=== PATIENT | male | born 1955 | race Caucasian/White ===

== ENCOUNTER 2018-02-12 07:34 | Inpatient (IN) | payer MEDICARE, OTHER ==
[~2018-02-12 07:34] MED LIST: ROCURONIUM 50 MG INJ
[2018-02-12 08:38] LABS: ADD MAN DIFF? NO
[2018-02-12] MEDS ORDERED: HEPARIN 1000 UNITS/ML 10 ML INJ (08:42)
[2018-02-12 08:44] LABS: BASOPHILS % 0.6 % (0.0-2.0); EOSINOPHILS # 0.3 10^3/ul (0.0-0.5); EOSINOPHILS % 4.2 % (0.0-7.0); HEMATOCRIT 36.9 % (42.0-52.0); HEMOGLOBIN 13.1 g/dl (14.0-18.0); LYMPHOCYTES # 2.8 10^3/ul (0.8-2.9); MEAN CORPUSCULAR HEMOGLOBIN 30.6 pg (29.0-33.0); MEAN CORPUSCULAR HGB CONC 35.5 g/dl (32.0-37.0); MEAN CORPUSCULAR VOLUME 86.2 fl (82.0-101.0); MEAN PLATELET VOLUME 9.1 fl (7.4-10.4); MONOCYTE # 0.6 10^3/ul (0.3-0.9); MONOCYTES % 8.9 % (0.0-11.0); NEUTROPHILS % 45.2 % (39.0-77.0); PLATELET COUNT 254 10^3/UL (140-415); RED BLOOD COUNT 4.28 10^6/ul (4.70-6.10); RED CELL DISTRIBUTION WIDTH 11.6 % (11.5-14.5)
[2018-02-12 08:44] LABS: WHITE BLOOD COUNT 6.7 10^3/ul (4.8-10.8)
[2018-02-12] MEDS ORDERED: FENTAnyl 50 MCG/ML VIAL (09:38)
[2018-02-12] MEDS: THROMBIN 5000 UNIT VIAL (10:24)
[2018-02-12] MEDS: GELATIN SIZE 100 SPONGE (10:24)
[2018-02-12] MEDS: CEFAZOLIN 1 GM INJ (10:24)
[2018-02-12] MEDS ORDERED: PHENYLephrine (100 MCG/ML) 5ML SYG (10:41)
[2018-02-12] MEDS ORDERED: HYDROmorphONE (0.2 MG/ML) 10ML SYG IV ×2 (13:30)
[2018-02-12] MEDS ORDERED: FENTAnyl 50 MCG/ML VIAL IV (13:30)
[2018-02-12] MEDS ORDERED: MEPERIDINE 25 MG INJ IV (13:30)
[2018-02-12] MEDS ORDERED: METOCLOPRAMIDE 10 MG INJ IV (13:30)
[2018-02-12] MEDS ORDERED: POLYMYXIN/BACITRACIN 1L IRRIG (14:36)
[2018-02-12] MEDS ORDERED: LIDOCAINE 100 MG SYRINGE (16:16)
[2018-02-12] MEDS ORDERED: ROCURONIUM 50 MG INJ (16:16)
[2018-02-12] MEDS ORDERED: SUGAMMADEX SODIUM 200 MG/2 ML VIAL IV (16:16)
[2018-02-12] MEDS ORDERED: SUCCINYLCHOLINE CHLORIDE 100 MG/5 ML SYG IV (16:16)
[2018-02-12] MEDS ORDERED: PROPOFOL 20 ML (16:16)
[2018-02-12] MEDS ORDERED: CEFAZOLIN 1 GM INJ (16:16)
[2018-02-12] MEDS ORDERED: PROCHLORPERAZINE 10 MG TAB PO (17:00)
[2018-02-12] MEDS ORDERED: ONDANSETRON 4 MG INJ IV (17:00)
[2018-02-12] MEDS ORDERED: NALOXONE (0.4 MG/ML) INJ IV (17:00)
[2018-02-12] MEDS ORDERED: NACL 0.9% 3 ML SYG IV (17:00)
[2018-02-12] MEDS ORDERED: ACETAMINOPHEN 325 MG TAB PO (17:00)
[2018-02-12] MEDS: HYDROmorphONE (0.2 MG/ML) 10ML SYG IV (17:24)
[2018-02-12] MEDS: ONDANSETRON 4 MG INJ IV (17:26)
[2018-02-12] MEDS: FENTAnyl 50 MCG/ML VIAL IV (17:28)
[2018-02-12] MEDS ORDERED: HYDROmorphONE 0.5 MG/0.5 ML SYG IV (17:30)
[2018-02-12] MEDS: HYDROmorphONE 0.2 MG/ML PCA IV (17:32)
[2018-02-12] MEDS: DIPHENHYDRAMINE 50 MG INJ IV (17:55)
[2018-02-12] MEDS: CEFAZOLIN 1 GM/50 ML (PMX) 50 ML IVPB ×2 (18:29→23:50)
[2018-02-12 19:11] LABS: HEMATOCRIT 32.4 % (42.0-52.0); HEMOGLOBIN 11.5 g/dl (14.0-18.0); MEAN CORPUSCULAR HEMOGLOBIN 30.8 pg (29.0-33.0); MEAN CORPUSCULAR HGB CONC 35.5 g/dl (32.0-37.0); MEAN CORPUSCULAR VOLUME 86.9 fl (82.0-101.0); MEAN PLATELET VOLUME 8.6 fl (7.4-10.4); PLATELET COUNT 182 10^3/UL (140-415); RED BLOOD COUNT 3.73 10^6/ul (4.70-6.10); RED CELL DISTRIBUTION WIDTH 11.6 % (11.5-14.5)
[2018-02-12 19:11] LABS: WHITE BLOOD COUNT 10.8 10^3/ul (4.8-10.8)
[2018-02-12 19:14] LABS: ADD MAN DIFF? YES
[2018-02-12 19:41] LABS: BAND NEUTROPHILS #M 0.4 10^3/ul (0.0-0.6); BAND NEUTROPHILS % (M) 4 % (0-4); LYMPHOCYTES #M 1.9 10^3/ul (0.8-2.9); LYMPHOCYTES % (M) 18 % (15-51); MONOCYTE #M 0.3 10^3/ul (0.3-0.9); MONOCYTES % (M) 3 % (0-11); PLATELET ESTIMATE NORMAL; SEG NEUT #M 8.1 10^3/ul (1.6-7.5); SEGMENTED NEUTROPHILS (M) % 75 % (39-77); SMUDGE%M 15 % (0-0)
[2018-02-12] MEDS: DEXTROSE 5%-0.45% NACL 1,000 ML IV (19:43)
[2018-02-13] MEDS: HYDROmorphONE 0.2 MG/ML PCA IV ×3 (00:10→21:02)
[2018-02-13] MEDS: DEXTROSE 5%-0.45% NACL 1,000 ML IV ×4 (02:57→22:57)
[2018-02-13] MEDS: CEFAZOLIN 1 GM/50 ML (PMX) 50 ML IVPB ×2 (06:32→11:47)
[2018-02-13 12:07] LABS: ANION GAP 14 (8-16); BLOOD UREA NITROGEN 9 mg/dl (7-20); CARBON DIOXIDE 24 mmol/L (21-31); CHLORIDE 100 mmol/L (97-110); CREATININE 0.61 mg/dl (0.61-1.24); GLUCOSE 172 mg/dl (70-220); POTASSIUM 3.9 mmol/L (3.5-5.1); SODIUM 134 mmol/L (135-144)
[2018-02-13] MEDS: DOCUSATE SODIUM 100 MG CAP PO (21:02)
[2018-02-14 04:57] LABS: ADD MAN DIFF? NO
[2018-02-14 05:03] LABS: BASOPHILS % 0.2 % (0.0-2.0); EOSINOPHILS % 0.2 % (0.0-7.0); HEMATOCRIT 31.3 % (42.0-52.0); HEMOGLOBIN 11.2 g/dl (14.0-18.0); LYMPHOCYTES # 1.4 10^3/ul (0.8-2.9); LYMPHOCYTES % 12.1 % (15.0-51.0); MEAN CORPUSCULAR HEMOGLOBIN 31.1 pg (29.0-33.0); MEAN CORPUSCULAR HGB CONC 35.8 g/dl (32.0-37.0); MEAN CORPUSCULAR VOLUME 86.9 fl (82.0-101.0); MEAN PLATELET VOLUME 9.2 fl (7.4-10.4); MONOCYTES % 9.2 % (0.0-11.0); NEUTROPHIL # 8.8 10^3/ul (1.6-7.5); NEUTROPHILS % 77.9 % (39.0-77.0); PLATELET COUNT 197 10^3/UL (140-415); RED CELL DISTRIBUTION WIDTH 11.3 % (11.5-14.5)
[2018-02-14 05:03] LABS: WHITE BLOOD COUNT 11.3 10^3/ul (4.8-10.8)
[2018-02-14 05:38] LABS: ALANINE AMINOTRANSFERASE 36 IU/L (13-69); ALBUMIN 3.2 g/dl (3.3-4.9); ALBUMIN/GLOBULIN RATIO 1.23; ALKALINE PHOSPHATASE 53 IU/L (42-121); ANION GAP 12 (8-16); ASPARTATE AMINO TRANSFERASE 34 IU/L (15-46); BILIRUBIN,INDIRECT 0.5 mg/dl (0-1.1); BILIRUBIN,TOTAL 0.5 mg/dl (0.2-1.3); BLOOD UREA NITROGEN 8 mg/dl (7-20); CARBON DIOXIDE 24 mmol/L (21-31); CHLORIDE 99 mmol/L (97-110); CREATININE 0.55 mg/dl (0.61-1.24); GLUCOSE 126 mg/dl (70-220); POTASSIUM 3.8 mmol/L (3.5-5.1); SODIUM 131 mmol/L (135-144); TOTAL PROTEIN 5.8 g/dl (6.1-8.1)
[2018-02-14] MEDS: DEXTROSE 5%-0.45% NACL 1,000 ML IV (06:57)
[2018-02-14] MEDS: DOCUSATE SODIUM 100 MG CAP PO ×2 (09:00→20:47)
[2018-02-14] MEDS: HYDROmorphONE 0.2 MG/ML PCA IV (10:54)
[2018-02-14] MEDS ORDERED: morphine (ER) 15 MG TAB PO ×2 (11:00→21:00)
[2018-02-14] MEDS: DEXTROSE 5%-0.9% NACL 1,000 ML IV ×3 (11:00→18:38)
[2018-02-14] MEDS: morphine (ER) 15 MG TAB PO ×2 (12:40→20:47)
[2018-02-14] MEDS: OXYCODONE/ACETAMINOPHEN (10/325) TAB PO ×2 (12:41→16:42)
[2018-02-14] MEDS: HYDROmorphONE 0.5 MG/0.5 ML SYG IV (22:53)
[2018-02-15] MEDS: OXYCODONE/ACETAMINOPHEN (10/325) TAB PO ×5 (04:45→23:52)
[2018-02-15 05:13] LABS: ADD MAN DIFF? NO
[2018-02-15 05:22] LABS: WHITE BLOOD COUNT 8.1 10^3/ul (4.8-10.8)
[2018-02-15 05:22] LABS: BASOPHILS % 0.2 % (0.0-2.0); EOSINOPHILS # 0.1 10^3/ul (0.0-0.5); EOSINOPHILS % 1.7 % (0.0-7.0); HEMATOCRIT 28.1 % (42.0-52.0); LYMPHOCYTES # 1.7 10^3/ul (0.8-2.9); LYMPHOCYTES % 20.7 % (15.0-51.0); MEAN CORPUSCULAR HEMOGLOBIN 30.9 pg (29.0-33.0); MEAN CORPUSCULAR HGB CONC 35.6 g/dl (32.0-37.0); MEAN CORPUSCULAR VOLUME 86.7 fl (82.0-101.0); MEAN PLATELET VOLUME 9.1 fl (7.4-10.4); MONOCYTE # 0.8 10^3/ul (0.3-0.9); MONOCYTES % 9.5 % (0.0-11.0); NEUTROPHIL # 5.5 10^3/ul (1.6-7.5); NEUTROPHILS % 67.5 % (39.0-77.0); PLATELET COUNT 177 10^3/UL (140-415); RED BLOOD COUNT 3.24 10^6/ul (4.70-6.10); RED CELL DISTRIBUTION WIDTH 11.6 % (11.5-14.5)
[2018-02-15 06:56] LABS: ANION GAP 11 (8-16); BLOOD UREA NITROGEN 10 mg/dl (7-20); CARBON DIOXIDE 27 mmol/L (21-31); CHLORIDE 99 mmol/L (97-110); GLUCOSE 109 mg/dl (70-220); POTASSIUM 3.8 mmol/L (3.5-5.1); SODIUM 133 mmol/L (135-144)
[2018-02-15] MEDS: DOCUSATE SODIUM 100 MG CAP PO ×2 (08:31→21:06)
[2018-02-15] MEDS: morphine (ER) 15 MG TAB PO ×2 (08:31→21:06)
[2018-02-15] MEDS: DEXTROSE 5%-0.9% NACL 1,000 ML IV (09:21)
[2018-02-15] MEDS: BISACODYL 10 MG SUPP PR (15:29)
[2018-02-16] MEDS: HYDROmorphONE 0.5 MG/0.5 ML SYG IV (02:54)
[2018-02-16] MEDS: DOCUSATE SODIUM 100 MG CAP PO (08:20)
[2018-02-16] MEDS: morphine (ER) 15 MG TAB PO (08:20)
== END 2018-02-16 15:30 | disposition home or self-care (01) | DRG 454 ==
LOC: REC 07:34 → MS1 18:14
PROVIDERS: Orthopaedic Surgery
PROC: 0SG00A0 Fusion of Lumbar Vertebral Joint with Interbody Fusion Device, Anterior Approach, Anterior Column, Open Approach (ICD-10-PCS; principal; 2018-02-12 09:00)
PROC: 0SG00K1 Fusion of Lumbar Vertebral Joint with Nonautologous Tissue Substitute, Posterior Approach, Posterior Column, Open Approach (ICD-10-PCS; 2018-02-12 09:00)
PROC: 0SB20ZZ Excision of Lumbar Vertebral Disc, Open Approach (ICD-10-PCS; 2018-02-12 09:00)
PROC: 01NB0ZZ Release Lumbar Nerve, Open Approach (ICD-10-PCS; 2018-02-12 09:00)
PROC: 00NY0ZZ Release Lumbar Spinal Cord, Open Approach (ICD-10-PCS; 2018-02-12 09:00)
PROC: 4A11X4G Monitoring of Peripheral Nervous Electrical Activity, Intraoperative, External Approach (ICD-10-PCS; 2018-02-12 09:00)
DX: M43.16 Spondylolisthesis, lumbar region (principal); D62 Acute posthemorrhagic anemia; M48.062 Spinal stenosis, lumbar region with neurogenic claudication; M51.16 Intervertebral disc disorders with radiculopathy, lumbar region; M51.36 Other intervertebral disc degeneration, lumbar region; E78.5 Hyperlipidemia, unspecified; G89.4 Chronic pain syndrome; I10 Essential (primary) hypertension; F17.200 Nicotine dependence, unspecified, uncomplicated
CPT/HCPCS: 72110; 80048; 80053; 85025; 86850; 86900; 86901; 86920; 87086; 88304; 97116; 97163; 97530